=== PATIENT | female | born 1995 | race Caucasian/White ===

== ENCOUNTER 2018-09-25 04:48 | Outpatient (CLI) | payer SELFPAY ==
[2018-09-25 07:39] LABS: RUPTURE FETAL MEMBRANES NEGATIVE (NEGATIVE)
== END 2018-09-25 08:30 | disposition home or self-care (01) ==
LOC: OBT 04:48 → L-D 04:48 → OBT 08:30
DX: O62.9 Abnormality of forces of labor, unspecified (principal); Z3A.38 38 weeks gestation of pregnancy
CPT/HCPCS: 76818; 84112

== ENCOUNTER 2018-10-01 12:34 | Outpatient (CLI) | payer SELFPAY | END 2018-10-01 14:30 | disposition home or self-care (01) | LOC: OBT 12:34 → L-D 12:35 → OBT 14:30 | DX: O62.9 Abnormality of forces of labor, unspecified (principal); Z3A.39 39 weeks gestation of pregnancy | CPT/HCPCS: 76815; 76818 ==

== ENCOUNTER 2018-10-02 03:35 | Inpatient (IN) | payer SELFPAY ==
[2018-10-02] MEDS ORDERED: OXYTOCIN 30 UNITS/LR 500 ML IV ×2 (05:00→17:30)
[2018-10-02] MEDS ORDERED: MISOPROSTOL 200 MCG TAB PR ×2 (05:00→17:30)
[2018-10-02] MEDS ORDERED: CEFAZOLIN 2 GM/50 ML (PMX) 50 ML IVPB ×2 (05:00→17:30)
[2018-10-02] MEDS ORDERED: CARBOPROST 250 MCG INJ IM ×2 (05:00→17:30)
[2018-10-02] MEDS ORDERED: METHYLERGONOVINE 0.2 MG INJ IM ×2 (05:00→17:30)
[2018-10-02] MEDS: TERBUTALINE 1 MG/ML INJ SC (05:30)
[2018-10-02] MEDS: LACTATED RINGER'S 1,000 ML IV ×3 (05:43→19:55)
[2018-10-02 06:11] LABS: ADD MAN DIFF? NO
[2018-10-02 06:18] LABS: BASOPHILS % 0.4 % (0.0-2.0); EOSINOPHILS # 0.1 10^3/ul (0.0-0.5); EOSINOPHILS % 1.3 % (0.0-7.0); HEMOGLOBIN 13.5 g/dl (12.0-16.0); LYMPHOCYTES # 1.4 10^3/ul (0.8-2.9); LYMPHOCYTES % 17.7 % (15.0-51.0); MEAN CORPUSCULAR HEMOGLOBIN 27.7 pg (29.0-33.0); MEAN CORPUSCULAR HGB CONC 32.9 g/dl (32.0-37.0); MEAN CORPUSCULAR VOLUME 84.2 fl (82.0-101.0); MEAN PLATELET VOLUME 10.7 fl (7.4-10.4); MONOCYTE # 0.8 10^3/ul (0.3-0.9); MONOCYTES % 9.7 % (0.0-11.0); NEUTROPHIL # 5.5 10^3/ul (1.6-7.5); NEUTROPHILS % 69.9 % (39.0-77.0); PLATELET COUNT 260 10^3/UL (140-415); RED BLOOD COUNT 4.87 10^6/ul (4.20-5.40); RED CELL DISTRIBUTION WIDTH 13.7 % (11.5-14.5)
[2018-10-02 06:18] LABS: WHITE BLOOD COUNT 7.9 10^3/ul (4.8-10.8)
[2018-10-02] MEDS ORDERED: PHENYLephrine (100 MCG/ML) 5ML SYG (07:00)
[2018-10-02 07:10] LABS: HEPATITIS B SURFACE ANTIGEN NEGATIVE (NEGATIVE)
[2018-10-02 07:20] LABS: INR 0.87; PROTIME 11.9 Sec (11.9-14.9); PT RATIO 0.9
[2018-10-02 07:21] LABS: PARTIAL THROMBOPLASTIN TIME 27.5 Sec (23.0-35.0)
[2018-10-02] MEDS ORDERED: ONDANSETRON 4 MG INJ (13:56)
[2018-10-02] MEDS ORDERED: DEXAMETHASONE 4 MG/ML 1 ML INJ (13:56)
[2018-10-02] MEDS ORDERED: morphine SULFATE/PF (10 MG/10 ML) INJ (14:02)
[2018-10-02] MEDS ORDERED: FENTAnyl 50 MCG/ML VIAL (14:04)
[2018-10-02] MEDS ORDERED: ONDANSETRON 4 MG INJ IV (14:30)
[2018-10-02] MEDS ORDERED: DIPHENHYDRAMINE 50 MG INJ IV (14:30)
[2018-10-02] MEDS ORDERED: NALOXONE (0.4 MG/ML) INJ IV (14:30)
[2018-10-02] MEDS ORDERED: HYDROmorphONE 0.5 MG/0.5 ML SYG IV ×2 (14:30)
[2018-10-02] MEDS ORDERED: ZOLPIDEM 5 MG TAB PO (14:30)
[2018-10-02] MEDS: AZITHROMYCIN 500MG/NS (PMX) 250 ML IVPB (15:17)
[2018-10-02] MEDS: KETOROLAC 30 MG INJ IV (15:17)
[2018-10-02] MEDS: OXYTOCIN 30 UNITS/LR 500 ML IV (15:18)
[2018-10-02] MEDS ORDERED: HYDROCODONE/APAP (5/325) TAB PO (17:30)
[2018-10-02] MEDS ORDERED: LANOLIN HPA 1 PKT TOP (17:30)
[2018-10-02] MEDS ORDERED: NA PHOSPHATE/BIPHOS 133 ML ENEMA PR (17:30)
[2018-10-02] MEDS: CLINDAMYCIN 300 MG CAP PO (18:00)
[2018-10-02 18:45] LABS: RAPID PLASMA REAGIN NONREACTIVE (NR)
[2018-10-02] MEDS: SENNA/DOCUSATE NA (8.6MG/50MG) TAB PO (21:00)
[2018-10-02] MEDS: CEFAZOLIN 2 GM/50 ML (PMX) 50 ML IVPB (21:32)
[2018-10-03] MEDS: CLINDAMYCIN 300 MG CAP PO ×4 (00:34→17:42)
[2018-10-03] MEDS: CEFAZOLIN 2 GM/50 ML (PMX) 50 ML IVPB ×2 (04:58→13:10)
[2018-10-03] MEDS: LACTATED RINGER'S 1,000 ML IV ×3 (05:59→22:00)
[2018-10-03] MEDS: KETOROLAC 30 MG INJ IV ×2 (06:51→13:10)
[2018-10-03] MEDS: SENNA/DOCUSATE NA (8.6MG/50MG) TAB PO ×2 (08:57→21:00)
[2018-10-03 08:58] LABS: ADD MAN DIFF? NO
[2018-10-03 09:02] LABS: WHITE BLOOD COUNT 13.2 10^3/ul (4.8-10.8)
[2018-10-03 09:02] LABS: BASOPHILS % 0.2 % (0.0-2.0); EOSINOPHILS % 0.2 % (0.0-7.0); HEMOGLOBIN 10.4 g/dl (12.0-16.0); LYMPHOCYTES # 1.8 10^3/ul (0.8-2.9); LYMPHOCYTES % 13.9 % (15.0-51.0); MEAN CORPUSCULAR HEMOGLOBIN 27.5 pg (29.0-33.0); MEAN CORPUSCULAR HGB CONC 32.5 g/dl (32.0-37.0); MEAN CORPUSCULAR VOLUME 84.7 fl (82.0-101.0); MONOCYTE # 1.4 10^3/ul (0.3-0.9); MONOCYTES % 10.8 % (0.0-11.0); NEUTROPHIL # 9.8 10^3/ul (1.6-7.5); NEUTROPHILS % 74.4 % (39.0-77.0); PLATELET COUNT 263 10^3/UL (140-415); RED BLOOD COUNT 3.78 10^6/ul (4.20-5.40); RED CELL DISTRIBUTION WIDTH 13.8 % (11.5-14.5)
[2018-10-03] MEDS: IBUPROFEN 800 MG TAB PO ×2 (14:00→21:52)
[2018-10-03] MEDS: BISACODYL 10 MG SUPP PR (15:16)
[2018-10-03] MEDS: OXYCODONE/ACETAMINOPHEN (5/325) TAB PO (19:46)
[2018-10-04] MEDS: OXYCODONE/ACETAMINOPHEN (5/325) TAB PO (00:15)
[2018-10-04] MEDS: CLINDAMYCIN 300 MG CAP PO ×4 (00:17→18:00)
[2018-10-04] MEDS: LACTATED RINGER'S 1,000 ML IV (06:00)
[2018-10-04] MEDS: IBUPROFEN 800 MG TAB PO ×2 (06:04→14:24)
[2018-10-04] MEDS: SENNA/DOCUSATE NA (8.6MG/50MG) TAB PO (09:59)
[2018-10-04] MEDS: ACETAMINOPHEN 325 MG TAB PO ×2 (13:21→19:00)
[2018-10-05] MEDS ORDERED: DIPHTH/TET/ACEL PERTUSS (ADULT) 0.5 ML VIAL IM* (09:00)
[2018-10-05] MEDS ORDERED: MEASLES,MUMPS,RUBELLA VACCINE INJ SC* (09:00)
== END 2018-10-04 19:15 | disposition home or self-care (01) | DRG 788 ==
LOC: OBT 03:35 → L-D 03:35 → OBT 04:48 → L-D 04:48 → PP1 17:25
PROVIDERS: Obstetrics & Gynecology
PROC: 10D00Z1 Extraction of Products of Conception, Low, Open Approach (ICD-10-PCS; principal; 2018-10-02 13:30)
PROC: 3E033VJ Introduction of Other Hormone into Peripheral Vein, Percutaneous Approach (ICD-10-PCS; 2018-10-02 13:30)
DX: O32.1XX0 Maternal care for breech presentation, not applicable or unspecified (principal); Z3A.39 39 weeks gestation of pregnancy; Z37.0 Single live birth
CPT/HCPCS: 76815; 85025; 85610; 85730; 86592; 86850; 86900; 86901; 87340; 99464

== ENCOUNTER 2018-10-05 01:48 | Emergency (ER) | payer SELFPAY ==
[2018-10-05] MEDS: IBUPROFEN 800 MG TAB PO (03:39)
== END 2018-10-05 03:44 | disposition home or self-care (01) ==
LOC: FTE 01:48
DX: O92.79 Other disorders of lactation (principal)
CPT/HCPCS: 99282